=== PATIENT | male | born 1965 ===

== ENCOUNTER 2024-08-18 14:36 | Outpatient (CLI) | payer OTHER | END 2024-08-18 14:37 | disposition home or self-care (01) | LOC: MRI 14:36 | DX: M47.26 Other spondylosis with radiculopathy, lumbar region (principal); M51.16 Intervertebral disc disorders with radiculopathy, lumbar region; M48.061 Spinal stenosis, lumbar region without neurogenic claudication; M47.815 Spondylosis without myelopathy or radiculopathy, thoracolumbar region; M48.05 Spinal stenosis, thoracolumbar region; M47.817 Spondylosis without myelopathy or radiculopathy, lumbosacral region; M51.379 Other intervertebral disc degeneration, lumbosacral region without mention of lumbar back pain or lower extremity pain; M48.07 Spinal stenosis, lumbosacral region | CPT/HCPCS: 72148 ==